=== PATIENT | female | born 1970 | race Caucasian/White ===

== ENCOUNTER 2021-05-03 16:12 | Emergency (ER) | payer OTHER ==
[~2021-05-03] VITALS: Ht 157.5 cm; Wt 101.4 kg
[2021-05-03 16:53] LABS: BILIRUBIN,URINE NEGATIVE (NEG); CLARITY,URINE CLEAR; COLOR,URINE YELLOW; NITRITE,URINE NEGATIVE (NEG); PROTEIN,URINE 100 mg/dL (NEG-TRACE); UROBILINOGEN,URINE 0.2 mg/dL (0.2 mg/dL)
[2021-05-03 16:57] LABS: BASO # 0.2 x10^3/uL (0.0-0.2); BASO % 1 % (0-3); EOS # 0.1 x10^3/uL (0.0-0.7); EOS % 1 % (0-3); HEMATOCRIT 29.8 % (36.0-47.0); HEMOGLOBIN 9.1 g/dL (12.0-15.5); LYMPH # 2.4 x10^3/uL (1.0-4.8); LYMPH % 12 % (24-48); MEAN CORPUSCULAR HEMOGLOBIN 19 pg (25-35); MEAN CORPUSCULAR HGB CONC 31 g/dL (31-37); MEAN CORPUSCULAR VOLUME 62 fL (79-100); MONO % 10 % (0-9); NEUT # 15.5 x10^3/uL (1.8-7.7); NEUT % 76 % (31-73); PLATELET COUNT 299 x10^3/uL (140-400); RED CELL DISTRIBUTION WIDTH 17.6 % (11.5-14.5); WHITE BLOOD COUNT 20.3 x10^3/uL (4.0-11.0)
[2021-05-03 17:08] LABS: CALCIUM 8.6 mg/dL (8.5-10.1); CREATININE 0.8 mg/dL (0.6-1.0); GFR 76.6; POTASSIUM 3.6 mmol/L (3.5-5.1)
[2021-05-03 17:15] LABS: ALBUMIN 3.6 g/dL (3.4-5.0); ALBUMIN/GLOBULIN RATIO 0.9 (1.0-1.7); TOTAL BILIRUBIN 0.5 mg/dL (0.2-1.0); TOTAL PROTEIN 7.6 g/dL (6.4-8.2)
[2021-05-03] MEDS ORDERED: IOHEXOL 300 MG/ML 100ML VIAL. IV ONE (17:15)
--- NOTE | 2021-05-03 17:20 | PHYS DOC ---
Past Medical History Past Medical History: No Pertinent History Past Surgical History: No Surgical History Smoking Status: Current Every Day Smoker Alcohol Use: Occasionally Drug Use: None General Adult EDM: Chief Complaint: ABDOMINAL PAIN HPI: HPI: Patient is a 50-year-old female that presents today with abdominal pain. Patient states she woke up this morning around 4-5 o'clock with lower abdominal pain, she states she had a loss of appetite and felt nauseated so did not eat breakfast, did go into work today did work through her shift she did call her primary care physician, she saw her primary care physician around 3 PM today and her primary care physician sent her to the emergency department for further evaluation for possible appendectomy. Patient states she has last ate around 6 PM last night she states she last had by mouth fluid at 3 PM today. Patient states she has abdominal pain and is localized to the right lower quadrant, she has had a couple of diarrhea stools today but she has had some constant nausea but has not vomited. Patient does state that she had a [facility] exam approximately 1 month ago she had a Pap smear at that time, which she said showed a bacterial infection and she was given a course of antibiotics for which she is finished at this time, her doctor also found that her hemoglobin was low and that that was being evaluated as well. Review of Systems: Review of Systems: Constitutional: Chills Eyes: Denies change in visual acuity. [] HENT: Denies nasal congestion or sore throat. [] Respiratory: Denies cough or shortness of breath. [] Cardiovascular: Denies chest pain or edema. [] GI: Abdominal pain, nausea, diarrhea : Denies dysuria. [] Musculoskeletal: Denies back pain or joint pain. [] Integument: Denies rash. [] Neurologic: Denies headache, focal weakness or sensory changes. [] Endocrine: Denies polyuria or polydipsia. [] Lymphatic: Denies swollen glands. [] Psychiatric: Denies depression or anxiety. [] Heart Score: C/O Chest Pain: N/A Risk Factors: Risk Factors: DM, Current or recent (<one month) smoker, HTN, HLP, family history of CAD, obesity. Risk Scores: Score 0 - 3: 2.5% MACE over next 6 weeks - Discharge Home Score 4 - 6: 20.3% MACE over next 6 weeks - Admit for Clinical Observation Score 7 - 10: 72.7% MACE over next 6 weeks - Early Invasive Strategies Allergies: Allergies: Allergies Coded Allergies Type Severity Reaction Last Updated Verified Penicillins Allergy Severe Rash 05/03/21 Yes Physical Exam: PE: Constitutional: Well developed, well nourished, no acute distress, non-toxic appearance. [] HENT: Normocephalic, atraumatic, bilateral external ears normal, oropharynx moist, no oral exudates, nose normal. [] Eyes: PERRLA, EOMI, conjunctiva normal, no discharge. [] Neck: Normal range of motion, no tenderness, supple, no stridor. [] Cardiovascular:Heart rate regular rhythm, no murmur [] Lungs & Thorax: Bilateral breath sounds clear to auscultation [] Abdomen: Abdomen soft tenderness noted in the right lower quadrant over McBurney's point, bowel sounds hypoactive no pulsatile masses noted Skin: Warm, dry, no erythema, no rash. [] Back: No tenderness, no CVA tenderness. [] Extremities: No tenderness, no cyanosis, no clubbing, ROM intact, no edema. [] Neurologic: Alert and oriented X 3, normal motor function, normal sensory function, no focal deficits noted. [] Psychologic: Affect normal, judgement normal, mood normal. [] Current Patient Data: Labs: Laboratory Tests Test 05/03/21 16:21 05/03/21 16:30 05/03/21 16:40 05/03/21 17:56 Urine Collection Type Unknown Urine Color Yellow Urine Clarity Clear Urine pH 6.0 Urine Specific [place] 1.020 Urine Protein 100 mg/dL Urine Glucose (UA) Negative mg/dL Urine Ketones (Stick) Negative mg/dL Urine Blood Large Urine Nitrite Negative Urine Bilirubin Negative Urine Urobilinogen Dipstick 0.2 mg/dL Urine Leukocyte Esterase Negative Urine RBC 0 /HPF Urine WBC 20-40 /HPF Urine Squamous Epithelial Cells Few /LPF Urine Bacteria Few /HPF Urine Mucus Mod /LPF Bedside Urine HCG, Qualitative Hcg negative White Blood Count 20.3 x10^3/uL Red Blood Count 4.80 x10^6/uL Hemoglobin 9.1 g/dL Hematocrit 29.8 % Mean Corpuscular Volume 62 fL Mean Corpuscular Hemoglobin 19 pg Mean Corpuscular Hemoglobin Concent 31 g/dL Red Cell Distribution Width 17.6 % Platelet Count 299 x10^3/uL Neutrophils (%) (Auto) 76 % Lymphocytes (%) (Auto) 12 % Monocytes (%) (Auto) 10 % Eosinophils (%) (Auto) 1 % Basophils (%) (Auto) 1 % Neutrophils # (Auto) 15.5 x10^3/uL Lymphocytes # (Auto) 2.4 x10^3/uL Monocytes # (Auto) 2.0 x10^3/uL Eosinophils # (Auto) 0.1 x10^3/uL Basophils # (Auto) 0.2 x10^3/uL Platelet Estimate Adequate Large Platelets Occ Polychromasia Slight Hypochromasia Slight Microcytosis Mod Target Cells Few Sodium Level 137 mmol/L Potassium Level 3.6 mmol/L Chloride Level 100 mmol/L Carbon Dioxide Level 25 mmol/L Anion Gap 12 Blood Urea Nitrogen 8 mg/dL Creatinine 0.8 mg/dL Estimated GFR (Cockcroft-Gault) 76.6 BUN/Creatinine Ratio 10 Glucose Level 107 mg/dL Calcium Level 8.6 mg/dL Total Bilirubin 0.5 mg/dL Aspartate Amino Transf (AST/SGOT) 13 U/L Alanine Aminotransferase (ALT/SGPT) 24 U/L Alkaline Phosphatase 94 U/L Total Protein 7.6 g/dL Albumin 3.6 g/dL Albumin/Globulin Ratio 0.9 Lipase 64 U/L Influenza Type A Antigen Negative Influenza Type B Antigen Negative SARS-CoV-2 Antigen (Rapid) Negative Test 05/03/21 18:30 Lactic Acid Level 0.7 mmol/L Current Medications Medications (Trade) Dose Ordered Sig/Alia Route PRN Reason Start Time Stop Time Status Last Admin Dose Admin Iohexol (Omnipaque 300 Mg/ml) 75 ml 1X ONCE IV 05/03/21 17:15 05/03/21 17:17 DC 05/03/21 17:28 Info (CONTRAST GIVEN -- Rx MONITORING) 1 each PRN DAILY PRN MC SEE COMMENTS 05/03/21 17:30 05/05/21 17:29 Sodium Chloride 1,000 ml @ 999 mls/hr 1X ONCE IV 05/03/21 17:30 05/03/21 18:30 DC 05/03/21 16:40 Aztreonam (Azactam) 2 gm 1X ONCE IVP 05/03/21 18:15 05/03/21 18:16 UNV Fentanyl Citrate (Fentanyl 2ml Vial) 50 mcg 1X ONCE IVP 05/03/21 18:30 05/03/21 18:31 DC 05/03/21 18:34 Ondansetron HCl (Zofran) 4 mg 1X ONCE IVP 05/03/21 18:30 05/03/21 18:31 DC 05/03/21 18:33 Cefepime HCl (Maxipime) 1 gm 1X ONCE IVP 05/03/21 18:30 05/03/21 18:31 DC 05/03/21 18:53 Meropenem 1 gm/ Sodium Chloride 100 ml @ 200 mls/hr Q8HRS IV 05/03/21 22:00 UNV Ceftriaxone Sodium (Rocephin) 2 gm 1X ONCE IVP 05/03/21 18:45 05/03/21 18:46 DC 05/03/21 19:29 Metronidazole 100 ml @ 100 mls/hr Q1H IV 05/03/21 18:30 05/03/21 20:29 DC 05/03/21 20:32 Metronidazole 100 ml @ 100 mls/hr 1X ONCE IV 05/03/21 18:30 05/03/21 19:29 UNV Laboratory Tests Test 05/03/21 16:30 05/03/21 16:40 POC Urine HCG, Qualitative Hcg negative (Negative) White Blood Count 20.3 x10^3/uL (4.0-11.0) H Red Blood Count 4.80 x10^6/uL (3.50-5.40) Hemoglobin 9.1 g/dL (12.0-15.5) L Hematocrit 29.8 % (36.0-47.0) L Mean Corpuscular Volume 62 fL (79-100) L Mean Corpuscular Hemoglobin 19 pg (25-35) L Mean Corpuscular Hemoglobin Concent 31 g/dL (31-37) Red Cell Distribution Width 17.6 % (11.5-14.5) H Platelet Count 299 x10^3/uL (140-400) Neutrophils (%) (Auto) 76 % (31-73) H Lymphocytes (%) (Auto) 12 % (24-48) L Monocytes (%) (Auto) 10 % (0-9) H Eosinophils (%) (Auto) 1 % (0-3) Basophils (%) (Auto) 1 % (0-3) Neutrophils # (Auto) 15.5 x10^3/uL (1.8-7.7) H Lymphocytes # (Auto) 2.4 x10^3/uL (1.0-4.8) Monocytes # (Auto) 2.0 x10^3/uL (0.0-1.1) H Eosinophils # (Auto) 0.1 x10^3/uL (0.0-0.7) Basophils # (Auto) 0.2 x10^3/uL (0.0-0.2) Platelet Estimate Pending Sodium Level 137 mmol/L (136-145) Potassium Level 3.6 mmol/L (3.5-5.1) Chloride Level 100 mmol/L (98-107) Carbon Dioxide Level 25 mmol/L (21-32) Anion Gap 12 (6-14) Blood Urea Nitrogen 8 mg/dL (7-20) Creatinine 0.8 mg/dL (0.6-1.0) Estimated GFR (Cockcroft-Gault) 76.6 BUN/Creatinine Ratio 10 (6-20) Glucose Level 107 mg/dL (70-99) H Calcium Level 8.6 mg/dL (8.5-10.1) Total Bilirubin Pending Aspartate Amino Transferase (AST) Pending Alanine Aminotransferase (ALT) Pending Alkaline Phosphatase Pending Total Protein Pending Albumin Pending Albumin/Globulin Ratio Pending Lipase Pending Laboratory Tests 05/03/21 16:40 Laboratory Tests 05/03/21 16:40 Vital Signs: Vital Signs Date Time Temp Pulse Resp B/P (MAP) Pulse Ox O2 Delivery O2 Flow Rate FiO2 05/03/21 18:54 21 99 Room Air 05/03/21 18:53 91 21 167/77 (107) 99 Room Air 05/03/21 18:34 21 99 Room Air 05/03/21 18:23 99.9 87 15 177/80 (112) 99 Room Air 99.9 05/03/21 17:54 85 17 172/79 (110) 98 Room Air 05/03/21 17:33 98 17 183/78 (113) 98 Room Air 05/03/21 16:22 106 16 180/91 (120) 99 Room Air 05/03/21 16:14 99.9 110 22 180/91 (120) 99 Room Air 99.9 Vital Signs Date Time Temp Pulse Resp B/P (MAP) Pulse Ox O2 Delivery O2 Flow Rate FiO2 05/03/21 16:14 99.9 110 22 180/91 (120) 99 Room Air 99.9 EKG: EKG: [] Radiology/Procedures: Radiology/Procedures: REASON: abdominal pain PROCEDURE: CT ABD PELV W/ IV CONTRST ONLY Exam: CT abdomen/pelvis with intravenous contrast Indication: Abdominal pain Comparison: None Technique: Helical CT imaging performed of the abdomen and pelvis after the intravenous administration of 75 mL Omnipaque 300 contrast. Sagittal and coronal reformats were obtained. One or more of the following individualized dose reduction techniques were utilized for this examination: 1. Automated exposure control 2. Adjustment of the mA and/or kV according to patient size 3. Use of iterative reconstruction technique. Findings: Lower chest: Normal. Liver: Normal. Gallbladder/Biliary Tree: Normal. Pancreas: Normal. Spleen: Normal. Adrenal Glands: Normal. Kidneys/Ureters/Bladder: Kidneys are normal in size. There is mild left hydronephrosis and hydroureter due to a multi a loculated cystic mass in the pelvis, described below. No right hydronephrosis or right hydroureter. Both distal ureters are obscured due to the cystic mass. The urinary bladder is unremarkable. Reproductive Organs: There are multiple uterine masses suspicious for fibroids. There are bilateral multiseptated cystic adnexal masses. On the left, this measures 13.1 x 8.1 cm x 10.0. On the right, this measures 9.3 x 5.6 cm x 6.8. Some of the cystic components within the left adnexal mass are simple fluid density and some more intermediate density, which may indicate soft tissue component or complex fluid/blood. On the right, the cystic components have somewhat tubular appearance. There is mild fat stranding around the right adnexal mass. Stomach, small bowel, and colon: The stomach and small bowel are normal. There is mild inflammation of the cecum, likely reactive to the right adnexal mass. The colon is otherwise normal. The appendix is not clearly visualize. Vasculature: Abdominal aorta is normal in caliber. Lymph Nodes: No lymphadenopathy. Peritoneum and retroperitoneum: No free fluid or free air. Bones: No acute osseous abnormality. Impression: 1. Bilateral multiseptated cystic adnexal masses measuring up to 13 cm on the left and 9 6 mm on the right. These are suspicious for ovarian neoplasms. There is tubular component seen in the right adnexal mass with mild fat stranding, which could indicate a component of hydrosalpinx or pelvic inflammatory disease. 2. Both distal ureters are obscured by the adnexal masses. There is mild left hydroureteronephrosis due to the left adnexal mass. 3. Multiple fibroids in the uterus. Electronically signed by: Maria Victoria Caldwell MD (05/03/2021 6:08 PM) [id number] REASON: right sided pelvic pain and significant adnexal masses and R/O torsion PROCEDURE: PELVIS W/TV EXAMINATION: US PELVIS W/TV INDICATION: 50 years, Female, right-sided pelvic pain, pelvic masses. COMPARISON: Same day CT abdomen and pelvis. TECHNIQUE: Transabdominal ultrasound of the pelvis was performed with grayscale, spectral, and color doppler imaging. FINDINGS: UTERUS: Position: Anteverted. Measures: 11.9 x 8.4 x 6.5 cm. Uterine/Endometrial Morphology: Unremarkable. Endometrial Thickness: 0.8 cm.. RIGHT OVARY/ADNEXA: Measures: 7.5 x 7.6 x 4.7 cm. Ovarian Morphology: Unremarkable. Ovarian Color And Spectral Doppler Flow: Normal. Complex right adnexal cystic mass with soft tissue component and possible internal color flow; complete assessment of this mass is difficult due to large size. However, the soft tissue component measures 9.0 x 6.7 x 4.3 cm. The cystic component measures 8.3 x 8.7 x 5.9 cm. Incomplete septations seen within the cystic component which rises the possibility of folded hydrosalpinx as seen on CT exam. Additional, ill-defined 7.3 cm complex cystic mass with septations, likely representing folded left hydrosalpinx as seen on CT exam. Left ovary is not visualized. OTHER: Fluid/Cul-De-Sac: Unremarkable. IMPRESSION: Constellation of findings with correlation to same day CT exam are suggesting of massive left hydrosalpinx secondary to obstructing 9.0 x 6.7 x 4.3 cm solid appearing mass with possible internal vascularity seen in the proximal left fallopian tube; this mass is concerning for neoplasm. Other differential consideration is tubal hematoma. The complex right adnexal cystic mass with internal septations is probably representing mild right hydrosalpinx. No definite evidence of right ovarian torsion. Recommend gynecologic consultation and further evaluation with MRI pelvis without and with IV contrast. Electronically signed by: Joycelyn Alexander MD (05/03/2021 8:43 PM) [facility] [] Course & Med Decision Making: Course & Med Decision Making Pertinent Labs and Imaging studies reviewed. (See chart for details) [[id number] reviewed radiological results with Dr. Sanon it was recommended that we obtain a ultrasound to check for ovarian blood flow. Patient informed of radiological results and informed of the plan of care to proceed with an ultrasound. Patient is also requesting pain medications, and she is requesting something for nausea. Will be ordered. 1999 discussed patient's radiological findings with Dr. Lee from [facility] he is recommending that we try to get the patient placed at a facility that has [facility] oncology for further evaluation of the large masses in the pelvic region. Page made to [facility] transfer team. 2006 did review ultrasound results with patient did inform her of the need for transfer to another facility where [facility] oncology services are available, she is agreeable to a transfer at this time. Dr. Sanon at this time is speaking to the transfer team at [facility]. 2054 physician report given to Kori PISANO at [facility]. They state that once a bed is assigned the transfer team will call for nursing report. Patient will be going by EMS transfer forms have been completed. Checkout to Dr. Sanon at this time. Kevin Disclaimer: Dragjeanie Disclaimer: This electronic medical record was generated, in whole or in part, using a voice recognition dictation system. Departure Departure Impression: Primary Impression: Adnexal mass Disposition: 02 SHORT TERM HOSPITAL Condition: GUARDED Referrals: JUANJOSE LE (PCP) CHANEL INIGUEZ APRN May 03, 2021 17:20
[2021-05-03 17:22] LABS: BACTERIA,URINE FEW /HPF (0-FEW)
[2021-05-03 17:23] LABS: WBC,URINE 20-40 /HPF (0-4)
[2021-05-03 17:24] LABS: RBC,URINE 0 /HPF (0-2)
[2021-05-03] MEDS ORDERED: CONTRAST GIVEN. MC PRN (17:30)
[2021-05-03] MEDS ORDERED: IV NORMAL SALINE 1000ML BAG 1,000 ML IV ONE (17:30)
[2021-05-03 18:08] LABS: HYPOCHROMIA SLIGHT; PLT ESTIMATE ADEQUATE (ADEQUATE); POLYCHROMASIA SLIGHT
[2021-05-03 18:09] LABS: MICROCYTOSIS MOD; TARGET CELLS FEW
--- NOTE | 2021-05-03 18:11 | RAD ---
Exam: CT abdomen/pelvis with intravenous contrast Indication: Abdominal pain Comparison: None Technique: Helical CT imaging performed of the abdomen and pelvis after the intravenous administratio n of 75 mL Omnipaque 300 contrast. Sagittal and coronal reformats were obtained. One or more of the following individualized dose reduction techniques were utilized for this examinat ion: 1. Automated exposure control 2. Adjustment of the mA and/or kV according to patient size 3. Use of iterative reconstruction technique. Findings: Lower chest: Normal. Liver: Normal. Gallbladder/Biliary Tree: Normal. Pancreas: Normal. Spleen: Normal. Adrenal Glands: Normal. Kidneys/Ureters/Bladder: Kidneys are normal in size. There is mild left hydronephrosis and hydrourete r due to a multi a loculated cystic mass in the pelvis, described below. No right hydronephrosis or r ight hydroureter. Both distal ureters are obscured due to the cystic mass. The urinary bladder is unr emarkable. Reproductive Organs: There are multiple uterine masses suspicious for fibroids. There are bilateral m ultiseptated cystic adnexal masses. On the left, this measures 13.1 x 8.1 cm x 10.0. On the right, th is measures 9.3 x 5.6 cm x 6.8. Some of the cystic components within the left adnexal mass are simple fluid density and some more intermediate density, which may indicate soft tissue component or comple x fluid/blood. On the right, the cystic components have somewhat tubular appearance. There is mild fa t stranding around the right adnexal mass. Stomach, small bowel, and colon: The stomach and small bowel are normal. There is mild inflammation o f the cecum, likely reactive to the right adnexal mass. The colon is otherwise normal. The appendix i s not clearly visualize. Vasculature: Abdominal aorta is normal in caliber. Lymph Nodes: No lymphadenopathy. Peritoneum and retroperitoneum: No free fluid or free air. Bones: No acute osseous abnormality. Impression: 1. Bilateral multiseptated cystic adnexal masses measuring up to 13 cm on the left and 9 6 mm on the right. These are suspicious for ovarian neoplasms. There is tubular component seen in the right adne xal mass with mild fat stranding, which could indicate a component of hydrosalpinx or pelvic inflamma tory disease. 2. Both distal ureters are obscured by the adnexal masses. There is mild left hydroureteronephrosis due to the left adnexal mass. 3. Multiple fibroids in the uterus. Electronically signed by: Maria Victoria Caldwell MD (05/03/2021 6:08 PM) [id number]
[2021-05-03] MEDS ORDERED: AZTREONAM IV Push 2 GM VIAL. IVP ONE (18:15)
[2021-05-03 18:27] LABS: INFLUENZA A PATIENT NEGATIVE (NEGATIVE); INFLUENZA B PATIENT NEGATIVE (NEGATIVE)
[2021-05-03] MEDS ORDERED: fentaNYL PF VIAL 100 MCG/2 ML VIAL ONE (18:29)
[2021-05-03] MEDS ORDERED: fentaNYL PF VIAL 100 MCG/2 ML VIAL IVP ONE (18:30)
[2021-05-03] MEDS ORDERED: CEFEPIME HCL IV Push 1 GM VIAL. IVP ONE (18:30)
[2021-05-03] MEDS ORDERED: ONDANSETRON PF 4 MG/2 ML VIAL. IVP ONE (18:30)
[2021-05-03] MEDS ORDERED: cefTRIAXone IV Push 2 GM VIAL. IVP ONE (18:45)
--- NOTE | 2021-05-03 20:46 | RAD ---
EXAMINATION: US PELVIS W/TV INDICATION: 50 years, Female, right-sided pelvic pain, pelvic masses. COMPARISON: Same day CT abdomen and pelvis. TECHNIQUE: Transabdominal ultrasound of the pelvis was performed with grayscale, spectral, and color doppler imaging. FINDINGS: UTERUS: Position: Anteverted. Measures: 11.9 x 8.4 x 6.5 cm. Uterine/Endometrial Morphology: Unremarkable. Endometrial Thickness: 0.8 cm.. RIGHT OVARY/ADNEXA: Measures: 7.5 x 7.6 x 4.7 cm. Ovarian Morphology: Unremarkable. Ovarian Color And Spectral Doppler Flow: Normal. Complex right adnexal cystic mass with soft tissue component and possible internal color flow; comple te assessment of this mass is difficult due to large size. However, the soft tissue component measure s 9.0 x 6.7 x 4.3 cm. The cystic component measures 8.3 x 8.7 x 5.9 cm. Incomplete septations seen wi thin the cystic component which rises the possibility of folded hydrosalpinx as seen on CT exam. Sebas tional, ill-defined 7.3 cm complex cystic mass with septations, likely representing folded left hydro salpinx as seen on CT exam. Left ovary is not visualized. OTHER: Fluid/Cul-De-Sac: Unremarkable. IMPRESSION: Constellation of findings with correlation to same day CT exam are suggesting of massive left hydrosa lpinx secondary to obstructing 9.0 x 6.7 x 4.3 cm solid appearing mass with possible internal vascula rity seen in the proximal left fallopian tube; this mass is concerning for neoplasm. Other differenti al consideration is tubal hematoma. The complex right adnexal cystic mass with internal septations is probably representing mild right hydrosalpinx. No definite evidence of right ovarian torsion. Recomm end gynecologic consultation and further evaluation with MRI pelvis without and with IV contrast. Electronically signed by: Joycelyn Alexander MD (05/03/2021 8:43 PM) [facility]
[2021-05-03] MEDS ORDERED: ACETAMINOPHEN 500 MG TABLET PO ONE (21:45)
[2021-05-03] MEDS ORDERED: MEROPENEM 1 GM in IV NORMAL SALINE 100ML 100 ML IV SCH (22:00)
[2021-05-04 02:13] VITALS: BP 117/65
== END 2021-05-04 02:31 | disposition short-term general hospital (02) ==
LOC: ER 16:12
DX: U07.1 COVID-19 (principal); R19.09 Other intra-abdominal and pelvic swelling, mass and lump; R19.7 Diarrhea, unspecified; F17.200 Nicotine dependence, unspecified, uncomplicated; Z88.0 Allergy status to penicillin
CPT/HCPCS: 36415; 74177; 76830; 76856; 80053; 81001; 81025; 83605; 83690; 85025; 87040; 87086; 87428; 96361; 96365; 96366; 96375; 99285; J0692; J0696; J2405; J3010; J3490; J7030; Q9967; U0003; U0005

== ENCOUNTER 2021-07-03 08:31 | Outpatient (CLI) | payer OTHER ==
[~2021-07-03] VITALS: Ht 157.5 cm; Wt 97.7 kg
[2021-07-03] MEDS ORDERED: ceFAZolin SODIUM IV Push 1 GM VIAL. IVP ONE (08:45)
[2021-07-03 09:13] VITALS: BP 183/83
[2021-07-03 09:13] LABS: BASO # 0.1 x10^3/uL (0.0-0.2); BASO % 1 % (0-3); EOS # 0.2 x10^3/uL (0.0-0.7); EOS % 3 % (0-3); HEMATOCRIT 36.4 % (36.0-47.0); HEMOGLOBIN 10.7 g/dL (12.0-15.5); LYMPH # 1.6 x10^3/uL (1.0-4.8); LYMPH % 25 % (24-48); MEAN CORPUSCULAR HEMOGLOBIN 20 pg (25-35); MEAN CORPUSCULAR HGB CONC 30 g/dL (31-37); MEAN CORPUSCULAR VOLUME 68 fL (79-100); MONO # 0.6 x10^3/uL (0.0-1.1); MONO % 10 % (0-9); NEUT # 3.9 x10^3/uL (1.8-7.7); NEUT % 61 % (31-73); PLATELET COUNT 225 x10^3/uL (140-400); RED BLOOD COUNT 5.38 x10^6/uL (3.50-5.40); RED CELL DISTRIBUTION WIDTH 19.7 % (11.5-14.5); WHITE BLOOD COUNT 6.4 x10^3/uL (4.0-11.0)
[2021-07-03 09:21] LABS: PROTHROMBIN TIME PATIENT 12.4 SEC (11.7-14.0)
[2021-07-03 09:22] LABS: ALBUMIN 4.2 g/dL (3.4-5.0); ALBUMIN/GLOBULIN RATIO 1.2 (1.0-1.7); CALCIUM 9.5 mg/dL (8.5-10.1); CREATININE 0.8 mg/dL (0.6-1.0); GFR 76.6; POTASSIUM 4.1 mmol/L (3.5-5.1); TOTAL BILIRUBIN 0.1 mg/dL (0.2-1.0); TOTAL PROTEIN 7.6 g/dL (6.4-8.2)
[2021-07-03] MEDS ORDERED: MIDAZOLAM HCL/PF 2 MG/2 ML VIAL. ONE (09:57)
[2021-07-03] MEDS ORDERED: fentaNYL PF VIAL 100 MCG/2 ML VIAL ONE (09:57)
[2021-07-03 10:29] VITALS: BP 141/79
[2021-07-03] MEDS ORDERED: fentaNYL PF VIAL 100 MCG/2 ML VIAL IV ONE (10:30)
[2021-07-03] MEDS ORDERED: LIDOCAINE 1%/EPI 1:100,000 20 ML VIAL. INJ ONE (10:30)
[2021-07-03] MEDS ORDERED: MIDAZOLAM HCL/PF 2 MG/2 ML VIAL. IV ONE (10:30)
[2021-07-03 10:46] LABS: ANISOCYTOSIS SLIGHT; PLT ESTIMATE ADEQUATE (ADEQUATE)
[2021-07-03 10:50] VITALS: BP 154/80
[2021-07-03 11:05] VITALS: BP 144/86
[2021-07-03 11:20] VITALS: BP 140/82
[2021-07-03 11:35] VITALS: BP 162/92
--- NOTE | 2021-07-03 11:56 | RAD ---
PROCEDURE: Fluoroscopically and ultrasound-guided placement of right internal jugular tunnel central venous catheter with port (Bard PowerPort, Groshong tip ). Clinical Indication: Chemotherapy access Discussion: The risks and benefits of the procedure were discussed with the patient and/or their merchandiser retail representative. Informed consent was obtained. The patient was brought to the fluoroscopy suite and placed in supine position. A time out procedure was performed. The right neck and chest were prepped and draped using maximum sterile barrier technique including th e use of: Current guideline approved cutaneous antisepsis, a large sterile sheet to establish a steri le field. Additionally the positive printer operator wore a hat, mask, sterile gloves, a sterile gown during the proce dure as well as practiced acceptable hand hygiene prior to placing the port. Ultrasound-guided access: Ultrasound evaluation showed the right jugular vein to be patent and compr essible. 1 % lidocaine with epinephrine was administered to the skin and subcutaneous tissues overlyi ng the right neck and chest. Under direct ultrasound guidance a single wall puncture was made followe d by tract dilation and placement of a sheath. An ultrasound image was saved and sent to PACS. Next, an incision was made in an infraclavicular location and a pocket created. The catheter was tunneled between the pocket and the venotomy site. The catheter was advanced through the peel away sheath, u nder fluoroscopic guidance, such that it's tip was in the mid right atrium. The catheter was connecte d to the port reservoir. The port was accessed and found to flush and aspirate normally. The reservoi r was then placed into the subcutaneous pocket. The wound was closed in layers using 3 Vicryl and 4- 0 Vicryl suture. Dermabond was applied overlying the wound, and venotomy site. The patient tolerated procedure without immediate complication. Sedation: The procedure was performed under conscious sedation including continuous cardiopulmonary m onitoring via a dedicated sedation nurse. [id number] sedation time: 25 Fluoroscopy time: 0.2 minutes Dose area product 1 Man centimeter squared Impression: Successful ultrasound and fluoroscopically guided placement of right internal jugular rosi tatiana central venous catheter with port (Bard PowerPort, Groshong tip). Electronically signed by: Vignesh Dukes MD (07/03/2021 11:53 AM) [id number]
--- NOTE | 2021-07-03 12:01 | NUR ---
PIV removed, VS stable. Site clean, dry, intact. Instructions provided on site care, sedation. No questions at time of d/c. Family member driving home. All belongings taken w/ patient at time of discharge.
== END 2021-07-03 11:55 | disposition home or self-care (01) ==
LOC: INTRAD 08:31
DX: Z45.2 Encounter for adjustment and management of vascular access device (principal); C57.00 Malignant neoplasm of unspecified fallopian tube; F17.210 Nicotine dependence, cigarettes, uncomplicated; Z72.89 Other problems related to lifestyle; Z79.899 Other long term (current) drug therapy; Z98.890 Other specified postprocedural states; Z90.710 Acquired absence of both cervix and uterus; Z88.0 Allergy status to penicillin
CPT/HCPCS: 36415; 36561; 76937; 77001; 80053; 85025; 85610; 99152; 99153; C1788; C1892; J0690; J2250; J3010; J3490